=== PATIENT | male | born 1995 | race Caucasian/White ===

== ENCOUNTER → 2020-08-31 | Outpatient (CLI) | payer OTHER | LOC: COL.RAD 09:55 | DX: J32.3 Chronic sphenoidal sinusitis (principal) | CPT/HCPCS: A9585 ==

== ENCOUNTER 2024-07-06 22:48 | Emergency (ER) | payer OTHER ==
[~2024-07-06] VITALS: Ht 170.2 cm; Wt 129.5 kg
[~2024-07-06 22:48] MED LIST: FLEXERIL 1010 MG/TAB PO
[2024-07-06 23:07] VITALS: TEMP 98.3
[2024-07-06] MEDS ORDERED: Ketorolac 15 MG/ML VIAL IV ONE (23:30)
[2024-07-06 23:46] LABS: HEMATOCRIT 46.4 % (42.0-52.0); HEMOGLOBIN 15.4 g/dl (13.5-18.0); MEAN CELL VOLUME 85 fl (80.0-100.0); MEAN CORPUSCULAR HEMOGLOBIN 28 pg (27-31); MEAN CORPUSCULAR HGB CONC 33 g/dl (33.0-37.0); MEAN PLATELET VOLUME 8.7 fl (7.4-10.4); PLATELET COUNT 346 K/mm3 (130-400); RED BLOOD COUNT 5.45 M/mm3 (4.20-5.60)
[2024-07-06 23:50] LABS: ALANINE AMINOTRANSFERASE 39 U/L (0-55); ALBUMIN 3.9 g/dL (3.5-5.0); ALKALINE PHOSPHATASE 68 U/L (40-150); ANION GAP 12 mmol/L (7-16); AST,SGOT 18 U/L (5-34); BILIRUBIN,TOTAL 0.2 mg/dL (0.2-1.2); BLOOD UREA NITROGEN 10 mg/dL (9-21); CHLORIDE 106 mEq/L (98-107); CREATININE, serum 0.82 mg/dL (0.72-1.25); GLUCOSE 144 mg/dL (70-99); INR 1.1 (0.8-3.0); POTASSIUM 4.1 mEq/L (3.5-4.5); PROTHROMBIN TIME 11.4 SECONDS (9.7-12.8); SODIUM 138 mEq/L (136-145); TOTAL PROTEIN 7.5 g/dl (6.2-8.1)
[2024-07-06 23:52] LABS: PARTIAL THROMBOPLASTIN TIME 19.6 SECONDS (26.0-37.0)
[2024-07-06 23:58] LABS: TROPONIN-I < 0.010 ng/mL (0.00-0.033)
[2024-07-07 00:16] LABS: EOSINOPHIL 3 % (0-4); LYMPHOCYTE 30 % (20.0-51.0); NEUTROPHILS 63 % (42.0-75.2); PLATELET ESTIMATE NORMAL (NORMAL)
[2024-07-07] MEDS ORDERED: Home HYDROcodone/Acetaminophen 5/325 MG #4 TABS/PACK PO ONE (01:15)
[2024-07-07 01:39] VITALS: BP 121/86; PULSE 86
== END 2024-07-07 01:39 | disposition home or self-care (01) ==
LOC: COL.ER 22:48
PROVIDERS: Emergency Medicine
DX: R07.2 Precordial pain (principal)
CPT/HCPCS: J1885